=== PATIENT | male | born 1995 | race Caucasian/White ===

== ENCOUNTER 2017-05-26 05:50 | Emergency (ER) | payer BC ==
[2017-05-26 06:08] VITALS: TEMP 97.6
--- NOTE | 2017-05-26 06:29 | ED.PDOC ---
History of Present Illness - General Chief Complaint: Headache Stated Complaint: headache Time Seen by Provider: 05/26/17 06:23 Source: patient, Vital Signs reviewed Exam Limitations: no limitations - History of Present Illness Initial Comments: Zach Pennington 21 y/o male stated that he started having pressure type frontal headache which started 2 hours prior to being seen here at [facility].He stated light and noise bothers him.Had same symptoms in the past but according to him not this bad.No history of recent head trauma but had concussion in the past playing high school football. Timing/Duration: 1-3 hours Quality: moderate, pressure, other - no head injury Recent Head Trauma: no recent headache/trauma, occasional headaches Improving Factors: nothing Worsening Factors: other - light noise Associated Symptoms: nausea/vomiting Allergies/Adverse Reactions: Allergies NO KNOWN ALLERGY Allergy (Verified 05/26/17 06:06) Home Medications: Ambulatory Orders Naproxen [Naprosyn] 500 mg PO BID PRN #14 tab 05/26/17 Prochlorperazine Tab [Compazine Tab] 10 mg PO TID PRN #14 tab 05/26/17 Review of Systems - Review of Systems Constitutional: States: no symptoms reported EENTM: States: no symptoms reported Respiratory: States: no symptoms reported Cardiology: States: no symptoms reported Gastrointestinal/Abdominal: States: no symptoms reported Genitourinary: States: no symptoms reported Musculoskeletal: States: no symptoms reported Skin: States: no symptoms reported Neurological: States: see HPI, headache Endocrine: States: no symptoms reported Past Medical History (General) - Patient Medical History Hx Diabetes: No - Vaccination History Hx Influenza Vaccination: Yes - Triage Comment ED Triage Comment: awoke with frontal headache two hours ago, has had headaches in past but states this one is worse. Photophobia Family Medical History - Family History Father Family History: Unknown Hx Family Diabetes: Yes - parents Physical Exam - Physical Exam General Appearance: Alert, Anxious, No apparent distress Eyes, Ears, Nose, Throat Exam: PERRL/EOMI, normal ENT inspection, TMs normal, pharynx normal Neck: non-tender, full range of motion, supple, normal inspection, trachea midline Cardiovascular/Chest: normal peripheral pulses, regular rate, rhythm, no murmur Respiratory: chest non-tender, lungs clear Gastrointestinal/Abdominal: normal bowel sounds, non tender, soft, no organomegaly Back Exam: normal inspection, no CVA tenderness, no vertebral tenderness Extremity: non-tender, normal inspection, no calf tenderness 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, 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 Exam: normal hearing, normal speech, PERRL Coordination/Gait: normal gait, negative Romberg's sign Motor/Sensory: no motor deficit, no sensory deficit, no pronator drift Skin Exam: warm/dry, normal color Lymphatic: no adenopathy Progress - Progress Progress: 05/26/17 06:32 Vital Signs - 8 hr 05/26/17 06:04 Temperature 97.6 F Pulse Rate [ 60 Right] Respiratory 16 Rate Blood Pressure 122/70 [Left Arm] O2 Sat by Pulse 98 Oximetry Departure - Departure Clinical Impression: Headache Qualifiers: Headache type: unspecified Headache chronicity pattern: unspecified pattern Intractability: not intractable Qualified Code(s): R51 - Headache Time of Disposition: 06:37 Disposition: Discharge to Home or Self Care Condition: Good Departure Forms: ED Discharge - Pt. Copy, Patient Portal Self Enrollment Instructions: DI for Headache, Easing a Headache the Natural Way, Migraine Headaches (Alternative Therapy) Prescriptions: Naproxen [Naprosyn] 500 mg PO BID PRN #14 tab PRN Reason: Headache/Migraine Pain Prochlorperazine Tab [Compazine Tab] 10 mg PO TID PRN #14 tab PRN Reason: Headache/Migraine Pain Home Medications: Ambulatory Orders Naproxen [Naprosyn] 500 mg PO BID PRN #14 tab 05/26/17 Prochlorperazine Tab [Compazine Tab] 10 mg PO TID PRN #14 tab 05/26/17 Additional Instructions: NEED to sign up with primary md
[2017-05-26] MEDS ORDERED: KETOROLAC TROMETHAMINE INJ 60 MG/2 ML VIAL IM ONE (06:33)
[2017-05-26] MEDS ORDERED: PROCHLORPERAZINE INJ 10 MG/2 ML VIAL IM ONE (06:33)
[2017-05-26] MEDS ORDERED: DEXAMETHASONE INJ 4 MG/ML VIAL IM ONE (06:33)
[2017-05-26 07:02] VITALS: BP 134/68; O2SAT 96
== END 2017-05-26 07:02 | disposition home or self-care (01) ==
LOC: ER 05:50
DX: R51 Headache (principal)
CPT/HCPCS: J0780; J1100; J1885